=== PATIENT | female | born 1960 | race Two or more races ===

== ENCOUNTER 2016-06-23 07:03 | Day surgery (SDC) | payer OTHER ==
[~2016-06-23 07:03] MED LIST: FENTANYL 250 MCG/5 ML AMP IV PRN; IV START KIT ONE; LACTATED RINGERS 1,000 ML IV SCH; LACTATED RINGERS 1,000 ML ONE; LIDOCAINE Viscous 2% 15 ML UDCUP PO PRN; MIDAZOLAM HCL 5 MG/5 ML VIAL IV PRN
[2016-06-23] MEDS ORDERED: FENTANYL 100 MCG/2 ML VIAL ONE (07:07)
[2016-06-23] MEDS ORDERED: MIDAZOLAM HCL 5 MG/5 ML VIAL ONE (07:07)
[2016-06-23] MEDS ORDERED: LIDOCAINE Viscous 2% 15 ML UDCUP ONE (07:07)
[2016-06-23 14:16] LABS: HELICOBACTER PYLORII DETECTION NEGATIVE (NEGATIVE)
--- NOTE | 2016-06-25 12:59 | SURGPATH ---
[facility] [address] [place] [id number] Patient Name: RUPESH LORA MR#: [id number] : 1960 Gender: F Specimen #: [id number] Collected: 06/23/2016 Received: 06/24/2016 Reported: 06/25/2016 Submitting Phys: MIGUE HERNANDEZ Copy To Phys: SILV [facility] YASH, PAGE B Clinical History / Pre-Operative Diagnosis: HEARTBURN; SUBSTERNAL PRESSURE; NAUSEA; DYSPHAGIA; RULE OUT GIARDIA, CELIAC SPRUE AND GASTRITIS Specimen Source / Surgical Procedure Performed: #1-DUODENAL BIOPSY; #2-ANTRAL BIOPSY Interpretation: 1. DUODENUM, BIOPSY: - SMALL BOWEL MUCOSA WITH NO DIAGNOSTIC ABNORMALITY 2. STOMACH, ANTRUM, BIOPSY: - GASTRIC MUCOSA WITH NO DIAGNOSTIC ABNORMALITY Electronically Signed Out Kelli Travis M.D. Gross Description: #1 The specimen is received in a formalin filled container labeled with the patient's name and "duodenal biopsy". Two parham biopsies are 0.3 and 0.4 cm. Totally embedded in cassette #1. #2 The specimen is received in a formalin filled container labeled with the patient's name and "antral biopsy". Two parham biopsies are each 0.4 cm. Totally embedded in cassette #2. Serge Bledsoe PRuben Microscopic Description: 1. Sections show fragments of small bowel mucosa with long and well preserved villous processes. There is no significant inflammation and lymphocytes are not increased within the epithelium. No infectious organisms are identified and there is no dysplasia. 2. Sections show fragments of gastric mucosa. There is normal mucosal architecture and no significant inflammation. No Helicobacter organisms are identified and there is no intestinal metaplasia or dysplasia. 1: [id number] 2: 15091 R12
== END 2016-06-23 09:01 | disposition home or self-care (01) ==
LOC: SDC 07:03
PROVIDERS: ATTEND Internal Medicine Gastroenterology
PROC: 0DB98ZX Excision of Duodenum, Via Natural or Artificial Opening Endoscopic, Diagnostic (ICD-10-PCS; principal; 2016-06-23)
PROC: 0DB68ZX Excision of Stomach, Via Natural or Artificial Opening Endoscopic, Diagnostic (ICD-10-PCS; 2016-06-23)
DX: K29.70 Gastritis, unspecified, without bleeding (principal); K29.80 Duodenitis without bleeding; F41.9 Anxiety disorder, unspecified
CPT/HCPCS: 87081; 43239; J3010; J2250; A9270; J7120